=== PATIENT | female | born 1995 | race Caucasian/White ===

== ENCOUNTER 2019-08-22 21:36 | Emergency (ER) | payer OTHER ==
[~2019-08-22] VITALS: Ht 167.6 cm; Wt 61.2 kg
[2019-08-22 21:39] VITALS: Ht 167.6 cm; Wt 61.2 kg
[2019-08-22 23:12] LABS: BASOPHIL % 0.4 % (0-2); PLATELET COUNT 366 x10^3mcL (130-400); RED CELL DISTRIBUTION WIDTH 13.5 % (11.5-14.5)
[2019-08-22 23:13] LABS: AMPHETAMINE QUAL UR NONE DETECTED (See below)
[2019-08-22 23:16] LABS: CALCIUM 8.9 mg/dL (8.5-10.1); CARBON DIOXIDE 25.1 mmol/L (21-32); CHLORIDE SERUM 108 mmol/L (98-107); CREATININE SERUM 0.8 mg/dL (0.6-1.0); GFR1 > 60 mL/min; GLUCOSE SERUM 96 mg/dL (74-106); POTASSIUM SERUM 3.6 mmol/L (3.5-5.1); SODIUM SERUM 146 mmol/L (136-145)
[2019-08-22 23:22] LABS: ALBUMIN 4.2 g/dL (3.4-5.0); ALKALINE PHOSPHATASE 69 U/L (46-116); ALT/SGPT 21 U/L (14-59); AST/SGOT 21 U/L (15-37); BILIRUBIN TOTAL 0.3 mg/dL (0.20-1.00); TOTAL PROTEIN, SERUM 7.9 g/dL (6.4-8.2)
[2019-08-23 00:52] VITALS: BP 115/73
== END 2019-08-23 00:52 | disposition home or self-care (01) ==
LOC: ED 21:36
PROVIDERS: Emergency Medicine
DX: F10.129 Alcohol abuse with intoxication, unspecified (principal); S09.8XXA Other specified injuries of head, initial encounter; X58.XXXA Exposure to other specified factors, initial encounter; Y93.89 Activity, other specified; Y92.89 Other specified places as the place of occurrence of the external cause; Y99.8 Other external cause status
CPT/HCPCS: 36415; G0480; J7030

== ENCOUNTER 2020-05-21 19:21 | Emergency (ER) | payer OTHER ==
[~2020-05-21] VITALS: Ht 157.5 cm; Wt 73.9 kg
[2020-05-21 19:34] VITALS: Ht 157.5 cm; Wt 73.9 kg
[2020-05-21] MEDS ORDERED: ANTIBIOTIC O500 U/GM TOP (21:28)
[2020-05-21] MEDS ORDERED: IBUPROFEN600 MG PO (21:28)
[2020-05-21 21:39] VITALS: BP 125/71
== END 2020-05-21 21:39 | disposition home or self-care (01) ==
LOC: ED 19:21
DX: S81.012A Laceration without foreign body, left knee, initial encounter (principal); X58.XXXA Exposure to other specified factors, initial encounter; Y93.89 Activity, other specified; Y92.89 Other specified places as the place of occurrence of the external cause; Y99.8 Other external cause status
CPT/HCPCS: 90715; J2001